=== PATIENT | female | born 1980 | race Caucasian/White ===

== ENCOUNTER → 2018-03-06 12:29 | Outpatient (CLI) | payer MEDICAID, SELFPAY ==
--- NOTE | 2018-03-06 12:46 | CT_ITS ---
STUDY: CT CHEST WITH CONTRAST REASON FOR EXAM: Female, 38 years old. Sarcoma of the spine. Cough and congestion. Tracheostomy. RADIATION DOSAGE (If Supplied By Facility): CTDIvol = ( ) mGy, DLP = ( ) mGycm TECHNIQUE: Transaxial imaging was performed following intravenous administration of 100 ml of Isovue 300 contrast material. Individualized dose optimization techniques were used for this CT. COMPARISON: None. FINDINGS: Tracheostomy tube is in satisfactory position terminating in the trachea above the tanna. There is elevation of the right hemidiaphragm. Otherwise normal lung volumes. There is a 4.5 mm indeterminate nodule of the right apex seen on coronal image 93. There is a 4 mm indeterminate nodule in the right lower lobe on axial image 57. No infiltrates. No effusions. Normal heart and pericardium. Normal mediastinum. Normal hilar regions. Normal enhanced pulmonary arteries. Normal aorta arch and descending thoracic aorta. There is mild dextroconvex scoliosis of the thoracic spine and there are extensive postsurgical changes of the cervical thoracic spine. There is no demonstrated abnormality of the visualized upper abdomen. CT/Chest WITH Contrast IMPRESSION: No infiltrates. Two separate suspicious nodules in the right lung as above. Electronically Signed: Aj Hickey MD at 17:58 EDT , Service support ,
== END ==
PROVIDERS: Visit Provider Internal Medicine Hematology & Oncology
DX: C41.9 Malignant neoplasm of bone and articular cartilage, unspecified (principal); C78.00 Secondary malignant neoplasm of unspecified lung
CPT/HCPCS: 71260; Q9967; A4216